=== PATIENT | female | born 1995 | race Two or more races ===

== ENCOUNTER 2020-05-27 22:38 | Inpatient (IN) | payer MEDICAID ==
[~2020-05-27] VITALS: Ht 157.5 cm; Wt 63.5 kg
[2020-05-27 23:45] LABS: Basophils # (auto) 0 10 ^3/uL (0-0.2); Basophils % (auto) 0.1 % (0.0-2.0); Eosinophils # (auto) 0 10 ^3/uL (0-0.8); Hematocrit 40.6 % (36.0-46.0); Lymphocytes # (auto) 0.3 10 ^3/uL (0.4-5.4); Lymphocytes % (auto) 2.5 % (10.0-50.0); Mean Corpuscular Hemoglobin 31.5 pg (28.0-32.0); Mean Corpuscular Hgb Conc. 34.5 g/dL (32.0-36.0); Mean Corpuscular Volume 91.2 fL (80.0-100.0); Monocytes # (auto) 0.6 10 ^3/uL (0-1.3); Monocytes % (auto) 4.7 % (0.0-12.0); Neutrophils # (auto) 11.4 10 ^3/uL (1.6-8.6); Neutrophils % (auto) 92.7 % (37.0-80.0); Platelet Count (auto) 149 10^3/uL (140-450); Red Blood Cells 4.45 10^6/uL (4.0-5.20); Red Cell Distribution Width 12.9 % (11.8-14.3); White Blood Cell 12.3 10^3/uL (4.4-10.8)
[2020-05-28 00:01] LABS: Urine Bacteria FEW /hpf (None Seen); Urine Blood 3+ /uL (Negative); Urine Mucus FEW (None Seen); Urine Specific Gravity 1.036 (1.001-1.035); Urine WBC 19 /hpf (0 - 5)
[2020-05-28 00:07] LABS: BUN/Creatinine Ratio 12.1; Calcium 8.8 mg/dL (8.5-10.1); Potassium 3.4 mmol/L (3.5-5.1)
[2020-05-28 00:10] LABS: Bilirubin, Total 0.8 mg/dL (0.2-1.0)
[2020-05-28] MEDS ORDERED: cefTRIAXone 1GM/50ML D5W 50 ML IV ONE (01:30)
[2020-05-28] MEDS ORDERED: SODIUM CHLORIDE 0.9% 1,000 ML IV ONE (01:30)
[2020-05-28] MEDS ORDERED: ACETAMINOPHEN 325 MG TAB PO ONE (01:30)
[2020-05-28] MEDS ORDERED: metroNIDAZOLE 500MG/100ML 100 ML IV ONE (01:30)
[2020-05-28] MEDS ORDERED: ONDANSETRON HCL 4 MG/2 ML VIAL IV ONE (01:45)
[2020-05-28] MEDS ORDERED: MORPHINE SULF INJ 2 MG/ML SYRINGE 1ML IV ONE (01:45)
[2020-05-28 02:27] LABS: Lactic Acid w/Reflex 2.3 mmol/L (0.4-2.0)
[2020-05-28] MEDS: SODIUM CHLORIDE 0.9% 1,000 ML IV SCH ×3 (03:30→21:53)
[2020-05-28] MEDS ORDERED: MORPHINE SULFATE 4 MG/ML SYR/VIAL IV PRN (03:30)
[2020-05-28] MEDS: PIPERACILLIN-TAZOB 3.375GM 100 ML IV SCH ×2 (06:45→13:01)
[2020-05-28] MEDS: ONDANSETRON HCL 4 MG/2 ML VIAL IV PRN ×2 (06:46→19:39)
[2020-05-28 06:59] LABS: Basophils # (auto) 0 10 ^3/uL (0-0.2); Basophils % (auto) 0.1 % (0.0-2.0); Eosinophils # (auto) 0 10 ^3/uL (0-0.8); Hematocrit 36.6 % (36.0-46.0); Hemoglobin 12.3 g/dL (12.2-16.2); Lymphocytes # (auto) 0.2 10 ^3/uL (0.4-5.4); Mean Corpuscular Hgb Conc. 33.6 g/dL (32.0-36.0); Mean Corpuscular Volume 92.1 fL (80.0-100.0); Monocytes # (auto) 0.5 10 ^3/uL (0-1.3); Neutrophils # (auto) 9.8 10 ^3/uL (1.6-8.6); Neutrophils % (auto) 92.9 % (37.0-80.0); Platelet Count (auto) 117 10^3/uL (140-450); Red Blood Cells 3.97 10^6/uL (4.0-5.20); Red Cell Distribution Width 12.9 % (11.8-14.3); White Blood Cell 10.6 10^3/uL (4.4-10.8)
[2020-05-28 07:17] LABS: BUN/Creatinine Ratio 12.2; Calcium 7.3 mg/dL (8.5-10.1); Potassium 3.2 mmol/L (3.5-5.1)
[2020-05-28] MEDS: ACETAMINOPHEN 325 MG TAB PO PRN ×2 (09:39→19:43)
--- NOTE | 2020-05-28 10:03 | NUR ---
[facility] admit from [facility] admitted to [facility] after SBAR received. Patient oriented to primary RN, unit, room, bed, and unit policies regarding patient care and visiting hours. Patient weighed by bedscale and encouraged to call if they need something. All questions and concerns addressed, patient verbalized understanding.
--- NOTE | 2020-05-28 10:45 | NUR ---
GI Consult Dr. Hand at bedside.
[2020-05-28 10:54] VITALS: BP 118/61
[2020-05-28 12:36] VITALS: BP 116/61
[2020-05-28 16:54] VITALS: BP 102/53
[2020-05-28] MEDS ORDERED: POTASSIUM EFFERVESENT TAB 25 MEQ PO ONE (17:30)
[2020-05-28] MEDS: levoFLOXacin 500MG 100 ML IV SCH (17:52)
--- NOTE | 2020-05-28 18:53 | NUR ---
COVID test As per lab, no inhouse test available, orders must be sent out.
--- NOTE | 2020-05-28 19:35 | NUR ---
Opening Shift Note Assumed care of patient, awake and alert. No S/S of distress/SOB or pain noted. Patient reports nausea. To medicate with prn nausea medication. Bed is in lowest locked position with bed rails up x2 and call light is within reach of the patient. Instructed on POC and to call for assist PRN.
[2020-05-28] MEDS: metroNIDAZOLE 500MG/100ML 100 ML IV SCH (21:53)
[2020-05-28 22:00] VITALS: BP 101/59
[2020-05-29] MEDS: metroNIDAZOLE 500MG/100ML 100 ML IV SCH ×2 (05:30→14:30)
[2020-05-29 05:52] VITALS: BP 117/65
[2020-05-29 06:33] LABS: BUN/Creatinine Ratio 11.9; Calcium 8.3 mg/dL (8.5-10.1); Potassium 3.8 mmol/L (3.5-5.1)
[2020-05-29 08:00] VITALS: BP 126/64
[2020-05-29] MEDS: SODIUM CHLORIDE 0.9% 1,000 ML IV SCH (09:34)
[2020-05-29] MEDS: levoFLOXacin 500MG 100 ML IV SCH (09:34)
[2020-05-29] MEDS: ONDANSETRON HCL 4 MG/2 ML VIAL IV PRN (09:35)
--- NOTE | 2020-05-29 11:41 | NUR ---
I faxed follow up appointment request to [facility].
[2020-05-29 12:48] VITALS: BP 123/66
[2020-05-29 16:35] VITALS: BP 121/65
[2020-05-29] MEDS ORDERED: METR500T PO (17:26)
[2020-05-29] MEDS ORDERED: LEVO500T21 PO (17:26)
[2020-05-29 17:30] VITALS: BP 126/64
--- NOTE | 2020-05-29 19:15 | NUR ---
Discharge instructions given as ordered by dayshift RN. Encourage to follow up with PMD as instructed. All questions and concerns addressed. Patient verbalized understanding. Medication reconciliation form completed and copy given to patient. IV removed by dayshift RN. Patient taken to vehicle via wheelchair with all personal belongings, accompanied by staff. No distress noted at time of departure.
== END 2020-05-29 19:15 | disposition home or self-care (01) | DRG 249 ==
LOC: ER 22:38 → OVERFLOW 22:39 → WEST WING 05-28 10:04
PROVIDERS: ADMIT Hospitalist; ATTEND Hospitalist
DX: A09 Infectious gastroenteritis and colitis, unspecified (principal); N39.0 Urinary tract infection, site not specified; Z20.828 Contact with and (suspected) exposure to other viral communicable diseases
CPT/HCPCS: 36415; 74176; 80048; 80053; 81001; 81025; 82150; 82728; 83605; 83690; 85025; 86850; 86900; 86901; 87045; 87426; 87427; 87493; 96365; 96367; 96375; G0378; J0696; J1956; J2405; J2543; J3490